=== PATIENT | female | born 1960 | race Caucasian/White ===

== ENCOUNTER 2022-05-25 15:03 | Emergency (ER) | payer OTHER | END 2022-05-25 17:00 | disposition home or self-care (01) | LOC: CSHERS 15:03 | DX: S42.252A Displaced fracture of greater tuberosity of left humerus, initial encounter for closed fracture (principal); S82.832A Other fracture of upper and lower end of left fibula, initial encounter for closed fracture; W01.0XXA Fall on same level from slipping, tripping and stumbling without subsequent striking against object, initial encounter ==

== ENCOUNTER 2023-01-30 15:03 | Outpatient (CLI) | payer OTHER | END 2023-01-30 15:04 | disposition home or self-care (01) | LOC: CSHMRI 15:03 | PROVIDERS: ATTEND Orthopaedic Surgery | DX: M24.812 Other specific joint derangements of left shoulder, not elsewhere classified (principal); M75.82 Other shoulder lesions, left shoulder; S42.202D Unspecified fracture of upper end of left humerus, subsequent encounter for fracture with routine healing ==

== ENCOUNTER 2023-02-24 13:17 | Outpatient (CLI) | payer OTHER | END 2023-02-24 13:18 | disposition home or self-care (01) | LOC: CSHMAMMO 13:17 | PROVIDERS: ATTEND Family Medicine | DX: Z12.31 Encounter for screening mammogram for malignant neoplasm of breast (principal) | CPT/HCPCS: 77063; 77067 ==

== ENCOUNTER 2024-12-29 14:38 | Outpatient (CLI) | payer MEDICARE | END 2024-12-29 14:39 | disposition home or self-care (01) | LOC: CSHMRI 14:38 | PROVIDERS: ATTEND Podiatrist | DX: M77.41 Metatarsalgia, right foot (principal); M79.671 Pain in right foot; R60.0 Localized edema; R93.6 Abnormal findings on diagnostic imaging of limbs; S90.31XA Contusion of right foot, initial encounter ==